=== PATIENT | female | born 2005 | race Caucasian/White ===

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

== ENCOUNTER → 2025-05-31 | Outpatient (CLI) | payer MEDICAID, SELFPAY ==
--- NOTE | 2025-05-31 | XR_ITS ---
EXAMINATION: Cervical spine, 5 views Technique: Cervical spine AP, AP odontoid, lateral, bilateral obliques, 5 views Exam date and time: 05/31/2025 at 11:29 a.m. INDICATION: Posterior neck pain for the last 1 year, the patient is mentally challenged, and was not able to cooperate with the technologist instructions very well. FINDINGS: On the lateral view all of the cervical vertebra appear perfectly normal as do the intervertebral disc spaces and alignment. The upper airways likewise appear normal. On the anterior view the patient's head is turned to the right and her chin overlaps the upper cervical spine at the level of C1 and C2. However no abnormalities can be seen IMPRESSION: 1. Absolutely no abnormalities are seen anywhere in the cervical spine 2. As noted above, the patient was not able to fully cooperate with positioning, which impaired visibility of C1 and C2 on the anterior image. On the lateral view the upper 2 vertebra are very nicely seen in
== END | disposition home or self-care (01) ==
PROVIDERS: Referring Provider Physician Assistant; Visit Provider Physician Assistant
DX: M54.2 Cervicalgia (principal)
CPT/HCPCS: 72050